=== PATIENT | male | born 1970 ===

== ENCOUNTER 2021-05-25 13:03 | Observation (INO) ==
[2021-05-25] MEDS ORDERED: ALUMINUM/MAGNES/SIMETH MAX STR 30 ML UDCUP PO PRN (13:28)
[2021-05-25] MEDS ORDERED: guaiFENesin/DM ER 600-30 MG TABLET PO PRN (13:28)
[2021-05-25] MEDS ORDERED: MORPHINE 2 MG/1 ML SYRINGE IV PRN (13:28)
[2021-05-25] MEDS ORDERED: BISACODYL 5 MG TABLET PO PRN (13:28)
[2021-05-25] MEDS ORDERED: ZALEPLON 5 MG CAPSULE PO PRN (13:28)
[2021-05-25] MEDS ORDERED: ONDANSETRON 4 MG/2 ML VIAL IV PRN (13:28)
[2021-05-25] MEDS ORDERED: ACETAMINOPHEN 325 MG TABLET PO PRN (13:28)
[2021-05-25 13:37] LABS: Basophils % 0.4 % (0.0-0.8); Eosinophils # 0.2 10*3/uL (0.0-0.87); Eosinophils % 3.8 % (0.00-10.9); Hematocrit 43.1 VOL% (42.0-52.0); Hemoglobin 14.1 GM/DL (14.0-18.0); Immature Granulocytes % 0.4 %; Immature Granulocytes Absolute 0.02 #; Lymphocytes # 1.8 10*3/uL (1.4-4.0); Lymphocytes % 32.6 % (21.2-54.2); Mean Corpuscular HGB Conc 32.7 GM/DL (32-36); Mean Corpuscular Volume 91.1 FL (87-102); Mean Platelet Volume 10.2 FL (9.6-12.0); Monocytes % 13.8 % (1.7-12.7); Platelet Count 192 T/CUMM (130-400); Red Blood Count 4.73 MC/CUMM (3.8-5.5); White Blood Count 5.5 T/CUMM (4-12)
[2021-05-25 13:57] LABS: Calcium 9.5 MG/DL (8.5-10.1); Osmolality,Calculated 277.4 MOS/KG (273-304)
[2021-05-25 14:06] LABS: Macrocytosis Slight; Platelet Estimate Normal
[2021-05-25] MEDS ORDERED: KETOROLAC 30 MG/1 ML VIAL IV STA (14:55)
[2021-05-25] MEDS ORDERED: KETOROLAC 10 MG TABLET PO PRN (14:55)
[2021-05-25] MEDS: NITROGLYCERIN 2% OINT 1 INCH/GM PACK TOP SCH ×2 (17:18→19:25)
[2021-05-26] MEDS: NITROGLYCERIN 2% OINT 1 INCH/GM PACK TOP SCH ×2 (00:37→06:08)
[2021-05-26 05:38] VITALS: BP 132/81
[2021-05-26 06:38] LABS: Basophils % 0.6 % (0.0-0.8); Eosinophils # 0.3 10*3/uL (0.0-0.87); Hematocrit 40.5 VOL% (42.0-52.0); Hemoglobin 13.9 GM/DL (14.0-18.0); Immature Granulocytes % 0.2 %; Immature Granulocytes Absolute 0.01 #; Lymphocytes % 32.3 % (21.2-54.2); Mean Corpuscular HGB Conc 34.3 GM/DL (32-36); Mean Corpuscular Volume 90.6 FL (87-102); Mean Platelet Volume 10.6 FL (9.6-12.0); Monocytes % 12.2 % (1.7-12.7); Neutrophils % 50.7 % (38.7-73.9); Platelet Count 192 T/CUMM (130-400); Red Blood Count 4.47 MC/CUMM (3.8-5.5); Red Cell Distribution Width 14.2 % (9.3-17.3); White Blood Count 6.3 T/CUMM (4-12)
[2021-05-26 07:11] LABS: Calcium 9.4 MG/DL (8.5-10.1); Osmolality,Calculated 278.4 MOS/KG (273-304); Risk Ratio 5.86; Thyroid Stimulating Hormone 2.41 uIU/ml (0.358-3.74); VLDL Cholesterol 50.8 MG/DL
[2021-05-26] MEDS ORDERED: NEBIVOLOL 10 MG TABLET PO SCH (09:00)
[2021-05-26] MEDS ORDERED: hydroCHLOROthiazide 25 MG TABLET PO SCH (09:00)
[2021-05-26] MEDS ORDERED: ASPIRIN EC 81 MG TABLET PO SCH (09:00)
[2021-05-26] MEDS ORDERED: ISOSORBIDE MONONITRATE 30 MG TABLET PO SCH (09:00)
[2021-05-26] MEDS ORDERED: VALSARTAN 160 MG TABLET PO SCH (09:00)
[2021-05-26] MEDS ORDERED: PANTOPRAZOLE 40 MG TABLET PO SCH (09:00)
== END 2021-05-26 11:45 | disposition home or self-care (01) ==
LOC: N.EDINP 13:03 → N.ED 13:03 → N.TELEN 15:54
PROVIDERS: ADMIT Internal Medicine Interventional Cardiology; ATTEND Internal Medicine Interventional Cardiology